=== PATIENT | male | born 2000 | race African-American/Black ===

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

== ENCOUNTER → 2021-11-10 | Outpatient (CLI) | payer MEDICAID ==
[2021-11-10 14:46] LABS: Free T3 3.41 pg/mL (2.3-4.2); T3 Total 0.89 ng/mL (0.60-1.81)
[2021-11-10 14:51] LABS: Free T4 (Free Thyroxine) 1.41 ng/dL (0.89-1.76)
== END | disposition home or self-care (01) ==
LOC: LAB 09:38
PROVIDERS: ATTEND Internal Medicine Nephrology
DX: E03.9 Hypothyroidism, unspecified (principal)
CPT/HCPCS: 36415; 84439; 84443; 84480; 84481

== ENCOUNTER 2022-07-24 22:04 | Emergency (ER) | payer SELFPAY ==
[~2022-07-24] VITALS: Ht 172.7 cm; Wt 72.7 kg
[2022-07-24 22:47] LABS: Basophils # (auto) 0 10 ^3/uL (0-0.2); Basophils % (auto) 0.4 % (0.0-2.0); Eosinophils # (auto) 0.1 10 ^3/uL (0-0.8); Eosinophils % (auto) 1.9 % (0.0-7.0); Hematocrit 41.4 % (41.0-53.0); Hemoglobin 14.1 g/dL (13.5-17.5); Lymphocytes # (auto) 0.8 10 ^3/uL (0.4-5.4); Lymphocytes % (auto) 17.8 % (10.0-50.0); Mean Corpuscular Hemoglobin 27.8 pg (28.0-32.0); Mean Corpuscular Volume 81.5 fL (80.0-100.0); Monocytes # (auto) 0.5 10 ^3/uL (0-1.3); Monocytes % (auto) 10.4 % (0.0-12.0); Neutrophils # (auto) 3.1 10 ^3/uL (1.6-8.6); Neutrophils % (auto) 69.5 % (37.0-80.0); Nucleated Red Blood Cells % 0.2 %; Red Blood Cells 5.08 10^6/uL (4.5-5.90); Red Cell Distribution Width 13.9 % (11.8-14.3); White Blood Cell 4.5 10^3/uL (4.4-10.8)
[2022-07-24 23:07] LABS: Albumin 3.8 g/dL (3.4-5.0); BUN/Creatinine Ratio 15.6 (10.0-20.0); Calcium 9.1 mg/dL (8.5-10.1); Potassium 3.9 mmol/L (3.5-5.1)
[2022-07-24 23:10] LABS: Bilirubin, Total 0.6 mg/dL (0.2-1.0); Total Protein 8.4 g/dL (6.4-8.2)
[2022-07-25] MEDS ORDERED: HYDROcodone-ACET 5/325MG TAB PO ONE (01:00)
[2022-07-25] MEDS ORDERED: BACITRACIN TOP OINT 1 UD PKG TOP ONE (01:00)
[2022-07-25] MEDS ORDERED: BAC09TP TOP (01:01)
[2022-07-25] MEDS ORDERED: CYCL-839 PO (01:01)
[2022-07-25] MEDS ORDERED: IBUP800T26 PO (01:01)
[2022-07-25 02:13] VITALS: BP 112/78
== END 2022-07-25 02:12 | disposition home or self-care (01) ==
LOC: EDBD 22:04 → ER 22:09
DX: S96.911A Strain of unspecified muscle and tendon at ankle and foot level, right foot, initial encounter (principal); S00.93XA Contusion of unspecified part of head, initial encounter; F12.10 Cannabis abuse, uncomplicated; V43.52XA Car driver injured in collision with other type car in traffic accident, initial encounter; Y93.I9 Activity, other involving external motion; Y92.89 Other specified places as the place of occurrence of the external cause; Y99.8 Other external cause status
CPT/HCPCS: 36415; 70450; 71250; 72125; 73600; 74176; 80053; 85025